=== PATIENT | male | born 1935 | race Caucasian/White ===

== ENCOUNTER 2022-10-24 10:27 | Emergency (ER) | payer MEDICARE, SELFPAY ==
--- NOTE | ~2022-10-24 | XR_ITS ---
XR hand LT min 3V 10/24/2022 11:42 Indication: Left hand pain after fall Procedure: 3 views left hand Comparison: No prior studies for comparison. Findings: Osteopenia. There are punctate foreign bodies in the soft tissues overlying the second prox imal phalanx. No acute fracture or traumatic malalignment. Carpal bones intact. Impression: 1: No acute fracture. Reviewed, dictated and finalized at location A. [employer] Impression: 1: No acute fracture.
--- NOTE | ~2022-10-24 | XR_ITS ---
XR hip LT min 2V 10/24/2022 11:42 Indication: Possible fall. Hip pain. Procedure: 2 view chest left hip Comparison: No prior studies for comparison. Findings: Mild osteoarthritis of the left hip. There are radiation therapy implants overlying the pro state bed. No acute fracture or traumatic malalignment. There is lower lumbar spondylosis. Impression: 1: No acute fracture. Reviewed, dictated and finalized at location A. [employer] Impression: 1: No acute fracture.
[2022-10-24 10:40] VITALS: BP 114/57; PULSE 70; RESP 16; TEMP 37.3; O2SAT 96
--- NOTE | 2022-10-24 11:37 | ED.GENADULT ---
HPI - General Adult General Chief complaint: Extremity Problem,Nontraumatic Stated complaint: Left Hand Injury/Knee/Hip Source: patient and family Mode of arrival: ambulatory Limitations: no limitations History of Present Illness HPI narrative: Patient presents for evaluation of pain and swelling in the left hand. indicates the patient lives at a memory care center. She came to see him today and noted that he had informed with the nursing staff that he was experiencing pain and swelling in the left hand. is not aware of any recent injury. Apparently he did have a fall about 1.5 months ago. He has reported some pain in his left knee and left hip as of late. He denies left knee and left hip pain today. Pain in the left hand is worse with palpation. No numerical rating or descriptive quality provided to his pain. He is right-hand dominant. He took some Tylenol for his symptoms. Related Data Home Medications Medication Instructions Recorded Confirmed bupropion HCl 150 mg 24 hr tablet, 50 mg PO DAILY 10/24/22 10/24/22 extended release memantine 10 mg tablet 10 mg DAILY 10/24/22 10/24/22 montelukast 10 mg tablet 10 mg DAILY 10/24/22 10/24/22 quetiapine 100 mg tablet 100 mg DAILY 10/24/22 10/24/22 sertraline 50 mg tablet 50 mg DAILY 10/24/22 10/24/22 trazodone 50 mg tablet 50 mg QPM 10/24/22 10/24/22 Allergies Allergy/AdvReac Type Severity Reaction Status Date / Time No Known Allergies Allergy Verified 10/24/22 10:53 Review of Systems Review of Systems: CONSTITUTIONAL: Denies fever, chills, or sweats. EYES: Denies visual changes, redness, or discharge. ENT: Denies rhinorrhea, congestion, sore throat, or otalgia. CARDIOVASCULAR: Denies chest pain, palpitations, or edema. RESPIRATORY: Denies cough or dyspnea. GASTROINTESTINAL: Denies abdominal pain, nausea, vomiting, or diarrhea. GENITOURINARY: Denies dysuria or hematuria. SKIN: Denies rash or itching. MUSCULOSKELETAL:Reports pain and swelling in the left hand. Reports recent pain in the left knee and left hip, none currently. NEUROLOGIC: Denies headache, numbness, dizziness, or weakness. PSYCHIATRIC: Denies anxiety or depression. [facility] Past Medical History Medical History (Updated 10/24/22 @ 12:03 by JOSAFAT Churchill, ) Arthralgia of left hand Dementia Surgical History Surgical History No pertinent past surgical history Family History Family History Mother Family history non-contributory Social History Social History Substance use: never Additional living arrangements comments: [facility] Gender identity (if verbalized by the patient): Male Sexual Orientation (if Verbalized by the Patient): Straight or Heterosexual Spiritual care concerns: No Exam Narrative: GENERAL: Well-appearing, well-nourished, and in no acute distress. HEAD: Normocephalic, atraumatic. EYES: PERRLA and EOMI. ENT: Nares clear, no rhinorrhea or epistaxis. Mucous membranes moist. Oropharynx without tonsillar hypertrophy exudate or other lesions. Bilateral TMs pearly baez nonbulging NECK: Supple. No adenopathy or masses. No carotid bruits or JVD CHEST: Clear to auscultation. No respiratory distress. No wheezes rales or rhonchi HEART: Regular rate and rhythm. No murmur heard. Normal peripheral pulses. ABDOMEN: Soft, nontender, nondistended, normal active bowel sounds. EXTREMITIES: Tenderness throughout the left thumb and 1st metacarpal of the left hand. 3/5 hand line driver strength on left. 5/5 hand line driver strength on the right. Full range of motion of the left wrist. No tenderness in the left knee or left hip. Full range of motion of both joints. SKIN: Warm, dry, no rash. NEURO: No focal deficits. Alert and oriented x3. PSYCH: Normal mood and affect. Course Course E
== END 2022-10-24 12:10 | disposition home or self-care (01) ==
PROVIDERS: Emergency Provider Nurse Practitioner; PCP Nurse Practitioner Family
DX: M25.542 Pain in joints of left hand (principal); M25.552 Pain in left hip; F03.90 Unspecified dementia, unspecified severity, without behavioral disturbance, psychotic disturbance, mood disturbance, and anxiety
CPT/HCPCS: 73130; 73502; 99214; G0463

== ENCOUNTER 2023-01-17 09:55 | Emergency (ER) | payer MEDICARE, SELFPAY ==
--- NOTE | ~2023-01-17 | XR_ITS ---
XR elbow RT min 3V 01/17/2023 10:22 Indication: Proximal radial pain Procedure: 4 views of the right elbow Comparison: No prior studies for comparison. Findings: There are loose bodies along the ulnar aspect of the elbow, likely related to remote trauma . There are degenerative changes of the elbow joint. Lateral view limited for evaluation of joint eff usion. There is a possible avulsion fracture of the lateral humeral epicondyle. Impression: 1: Possible avulsion fracture lateral humeral epicondyle. Correlate for point tenderness. 2: Mild osteoarthritis of the right elbow with loose bodies adjacent to the medial humeral epicondyle . Reviewed, dictated and finalized at location A. Impression: 1: Possible avulsion fracture lateral humeral epicondyle. Correlate for point t enderness. 2: Mild osteoarthritis of the right elbow with loose bodies adjacent to the med ial humeral epicondyle.
[2023-01-17 10:11] VITALS: BP 152/78; PULSE 78; RESP 18; O2SAT 98
--- NOTE | 2023-01-17 11:01 | ED.GENADULT ---
HPI - General Adult General Chief complaint: Extremity Injury, Upper Stated complaint: Right Elbow Source: patient and family Mode of arrival: ambulatory Limitations: dementia History of Present Illness HPI narrative: Patient presents for evaluation of right elbow pain. He lives at a memory care center. This morning his came to visit him. She was told by nursing staff that patient was still in bed. He had advised nursing staff that he was experiencing right elbow pain. No witnessed injury. Patient's indicates patient is acting in accordance with his normal behavioral pattern. He is not on blood thinners. Pt denies any other symptoms. states pt has Alzheimer's. Related Data Home Medications Medication Instructions Recorded Confirmed bupropion HCl 150 mg 24 hr tablet, 50 mg PO DAILY 10/24/22 01/17/23 extended release memantine 10 mg tablet 10 mg DAILY 10/24/22 01/17/23 montelukast 10 mg tablet 10 mg DAILY 10/24/22 01/17/23 quetiapine 100 mg tablet 100 mg DAILY 10/24/22 01/17/23 sertraline 50 mg tablet 50 mg DAILY 10/24/22 01/17/23 trazodone 50 mg tablet 50 mg QPM 10/24/22 01/17/23 Allergies Allergy/AdvReac Type Severity Reaction Status Date / Time No Known Allergies Allergy Verified 01/17/23 10:02 Review of Systems Review of Systems: CONSTITUTIONAL: Denies fever, chills, or sweats. EYES: Denies visual changes, redness, or discharge. ENT: Denies rhinorrhea, congestion, sore throat, or otalgia. CARDIOVASCULAR: Denies chest pain, palpitations, or edema. RESPIRATORY: Denies cough or dyspnea. GASTROINTESTINAL: Denies abdominal pain, nausea, vomiting, or diarrhea. GENITOURINARY: Denies dysuria or hematuria. SKIN: Denies rash or itching. MUSCULOSKELETAL: Reports right elbow pain. NEUROLOGIC: Denies headache, numbness, dizziness, or weakness. PSYCHIATRIC: Denies anxiety or depression. [facility] Past Medical History Medical History (Updated 01/17/23 @ 11:03 by Will Pryor, JOSAFAT, HENRIETTA) Arthralgia of left hand Dementia Elbow fracture Surgical History Surgical History History of bladder surgery Family History Family History Mother Family history non-contributory Social History Social History Smoking status: Current some day smoker Tobacco type: cigars Substance use: never Additional living arrangements comments: [facility] Gender identity (if verbalized by the patient): Male Sexual Orientation (if Verbalized by the Patient): Straight or Heterosexual Spiritual care concerns: No Exam Narrative: GENERAL: Well-appearing, well-nourished, and in no acute distress. HEAD: Normocephalic, atraumatic. EYES: PERRLA and EOMI. ENT: Nares clear, no rhinorrhea or epistaxis. Mucous membranes moist. Oropharynx without tonsillar hypertrophy exudate or other lesions. Bilateral TMs pearly baez nonbulging NECK: Supple. No adenopathy or masses. No carotid bruits or JVD CHEST: Clear to auscultation. No respiratory distress. No wheezes rales or rhonchi HEART: Regular rate and rhythm. No murmur heard. Normal peripheral pulses. ABDOMEN: Soft, nontender, nondistended, normal active bowel sounds. EXTREMITIES: There is tenderness in right elbow without crepitus or deformity. Decreased active ROM of right elbow. 4/5 hand trousseau consultant strength on right. 5/5 hand trousseau consultant strength on right SKIN: Warm, dry, no rash. NEURO: No focal deficits. Alert and oriented to person. Confused about place and time. PSYCH: Normal mood and affect. Course Course Emergency Course: This is an 87-year-old male who presented for evaluation of right elbow pain. X-ray concerning for avulsion fracture of lateral epicondyle. Placed in long-arm splint and provided with a sling. Advised the speak with nursing staff of facility for res
== END 2023-01-17 11:00 | disposition home or self-care (01) ==
PROVIDERS: Emergency Provider Nurse Practitioner; PCP Nurse Practitioner Family
DX: S42.434A Nondisplaced fracture (avulsion) of lateral epicondyle of right humerus, initial encounter for closed fracture (principal); X58.XXXA Exposure to other specified factors, initial encounter; F17.290 Nicotine dependence, other tobacco product, uncomplicated; F03.90 Unspecified dementia, unspecified severity, without behavioral disturbance, psychotic disturbance, mood disturbance, and anxiety
CPT/HCPCS: 29105; 73080; 99214; A4565; G0463